=== PATIENT | female | born 1975 | race Caucasian/White ===

== ENCOUNTER 2025-08-25 10:24 | Emergency (ER) | payer BC ==
[~2025-08-25] VITALS: Ht 157.5 cm; Wt 85.9 kg
[2025-08-25 10:37] VITALS: BP 110/66; PULSE 78; RESP 16; TEMP 98.2; O2SAT 96
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
[2025-08-25] MEDS ORDERED: METH-1182 PO (11:38)
[2025-08-25] MEDS ORDERED: IBUP-1456 PO (11:38)
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
--- NOTE | 2025-08-25 13:05 | DVH ---
[facility] RADIOLOGY REPORT PATIENT NAME: JOSE THAKKAR : 1975 GENDER: F LOCATION: [facility] DOS: 08/25/2025 INTERPRETING PROVIDER: Antonio Navarro INDICATION: Pain TECHNIQUE: 2 views of the thoracic spine were obtained. COMPARISON: None FINDINGS: There is no evidence of fracture, subluxation and/or dislocation. Multilevel degenerative changes of the spine. The alignment is anatomical. The paravertebral soft tissues were unremarkable. IMPRESSION: 1. Of the visualized spine, there is no evidence for fracture or subluxation. [facility]
== END 2025-08-25 11:48 | disposition home or self-care (01) ==
LOC: ER 10:24
DX: S16.1XXA Strain of muscle, fascia and tendon at neck level, initial encounter (principal); S29.012A Strain of muscle and tendon of back wall of thorax, initial encounter; S39.012A Strain of muscle, fascia and tendon of lower back, initial encounter; Z90.710 Acquired absence of both cervix and uterus; V89.2XXA Person injured in unspecified motor-vehicle accident, traffic, initial encounter; Y93.I9 Activity, other involving external motion; Y92.488 Other paved roadways as the place of occurrence of the external cause; Y99.8 Other external cause status
CPT/HCPCS: 72040; 72070; 72100